=== PATIENT | female | born 1940 | race Caucasian/White ===

== ENCOUNTER 2025-07-26 23:46 | Inpatient (IN) | payer MEDICAID ==
[~2025-07-26] VITALS: Ht 144.8 cm; Wt 66.0 kg
[2025-07-26 23:58] VITALS: O2SAT 98
[2025-07-27 01:11] LABS: HEMATOCRIT. 34.9 % (36.0-48.0); HEMOGLOBIN. 11.2 g/dL (12.0-16.0); MEAN PLATELET VOLUME 8.2 fl (7.4-10.4); PLATELET 150 x1000/uL (130-400); RED BLOOD CELL COUNT 4.56 mill/uL (4.2-5.4); RED CELL DISTRIBUTION WIDTH 18.4 % (11.6-14.6)
[2025-07-27] MEDS: ONDANSETRON HCL 4MG/2ML INJ IV ONE (01:34)
[2025-07-27] MEDS: SODIUM CHLORIDE 0.9% 1,000 ML IV ONE (01:34)
[2025-07-27 01:38] LABS: CREATININE 1.2 mg/dL (0.6-1.0); TROPONIN I HIGH SENSITIVITY 26 ng/L (3.0-34)
[2025-07-27 01:39] LABS: UREA NITROGEN BLOOD 16 mg/dL (9-23)
[2025-07-27 01:40] LABS: ASPARTATE AMINOTRANSFERASE 494 IU/L (<34)
[2025-07-27 01:41] LABS: BILIRUBIN DIRECT 1.5 mg/dL (<=3.0); BILIRUBIN TOTAL 2.8 mg/dL (0.1-1.0); PROTEIN TOTAL 7.6 g/dL (6.0-8.3)
[2025-07-27] MEDS ORDERED: ONDANSETRON HCL 4MG/2ML INJ IV PRN (04:30)
[2025-07-27] MEDS ORDERED: ACETAMINOPHEN 325MG TABLET PO PRN (04:30)
[2025-07-27] MEDS ORDERED: HYDRALAZINE 20MG/ML VIAL IV PRN (04:30)
[2025-07-27] MEDS ORDERED: DIPHENHYDRAMINE 50MG/ML VIAL IV PRN (04:30)
[2025-07-27] MEDS: KCL 20MEQ/100ML PREMIX 100 ML IV SCH ×2 (04:46→09:08)
[2025-07-27] MEDS: MAGNESIUM 1 G PREMIX 100 ML IV SCH (04:47)
[2025-07-27] MEDS: SODIUM CHLORIDE 0.9% 1,000 ML IV SCH (04:47)
[2025-07-27] MEDS ORDERED: IOHEXOL-300 100 ML BOTTLE ONE (05:27)
[2025-07-27 05:59] LABS: CLARITY URINE CLEAR (CLEAR); COLOR URINE YELLOW (YELLOW); GLUCOSE URINE NEGATIVE (NEGATIVE); KETONES URINE NEGATIVE (NEGATIVE); LEUKOCYTE ESTERASE URINE NEGATIVE (NEGATIVE); NITRITE URINE NEGATIVE (NEGATIVE); OCCULT BLOOD URINE NEGATIVE (NEGATIVE); PH URINE 6.5 (4.5-8.0); PROTEIN URINE TRACE (NEGATIVE); SPECIFIC GRAVITY URINE 1.008 (1.005-1.030); UROBILINOGEN URINE 1.0 E.U./dL (0.2-1.0)
[2025-07-27 06:12] LABS: EOSINOPHILS % MANUAL 1.0 % (0.0-5.0); LYMPHOCYTES % MANUAL 5.0 % (20.0-60.0); MONOCYTES % MANUAL 1.0 % (2.0-8.0); NEUTROPHILS % MANUAL 93.0 % (45.0-75.0)
[2025-07-27 06:14] LABS: PLATELET ESTIMATE NORMAL
[2025-07-27 07:33] LABS: BACTERIA URINE TRACE; RBC URINE NONE SEEN /hpf (0-2); SQUAMOUS EPITHELIAL CELL URINE 1+ /lpf (RARE/1+); WBC URINE 0-2 /hpf (0-2)
[2025-07-27 08:00] VITALS: BP_SYST 123; BP_SYST 142; BP_DIAS 54; BP_DIAS 58; PULSE 68; PULSE 70; RESP 17; RESP 20; TEMP 36.14; TEMP 36.9; O2SAT 98
[2025-07-27] MEDS: PANTOPRAZOLE SODIUM 40 MG/VIAL IV SCH (09:07)
[2025-07-27 12:00] VITALS: BP 142/53; PULSE 46; RESP 20; TEMP 36.3; O2SAT 100
[2025-07-27 16:00] VITALS: BP 147/58; PULSE 63; RESP 18; TEMP 37.1; O2SAT 98
[2025-07-27] MEDS: ACETAMINOPHEN 325MG TABLET PO PRN (18:37)
[2025-07-27] MEDS ORDERED: ATEN-42 PO (19:03)
[2025-07-27] MEDS ORDERED: AMLO5TAB88 PO (19:03)
[2025-07-27] MEDS ORDERED: BENA-8 PO (19:03)
[2025-07-27 20:00] VITALS: BP 108/52; PULSE 90; RESP 18; TEMP 36.5; O2SAT 98
[2025-07-27] MEDS: PIPERACILLIN/TAZO 3.375G/50ML 50 ML IV SCH (22:00)
[2025-07-28] VITALS: BP 97/47; PULSE 92; RESP 18; TEMP 36.5; O2SAT 97
[2025-07-28 04:00] VITALS: BP 115/49; PULSE 67; RESP 18; TEMP 36.4; O2SAT 98
[2025-07-28 08:11] VITALS: BP 158/63; PULSE 88; RESP 20; TEMP 36.3; O2SAT 99
[2025-07-28 08:15] LABS: HEMATOCRIT. 30.6 % (36.0-48.0); HEMOGLOBIN. 9.7 g/dL (12.0-16.0); MEAN PLATELET VOLUME 8.8 fl (7.4-10.4); PLATELET 109 x1000/uL (130-400); RED BLOOD CELL COUNT 3.94 mill/uL (4.2-5.4); RED CELL DISTRIBUTION WIDTH 19.4 % (11.6-14.6)
[2025-07-28 08:26] LABS: CREATININE 1.5 mg/dL (0.6-1.0)
[2025-07-28 08:27] LABS: LDL CHOLESTEROL 45 mg/dL (5-100); TRIGLYCERIDE 179 mg/dL (0-150); UREA NITROGEN BLOOD 25 mg/dL (9-23)
[2025-07-28 08:28] LABS: ASPARTATE AMINOTRANSFERASE 76 IU/L (<34); BILIRUBIN DIRECT 2.3 mg/dL (<=3.0)
[2025-07-28 08:29] LABS: BILIRUBIN TOTAL 3.2 mg/dL (0.1-1.0); PHOSPHORUS 2.8 mg/dL (2.5-4.9); PROTEIN TOTAL 5.9 g/dL (6.0-8.3)
[2025-07-28 08:31] LABS: FOLIC ACID (FOLATE) SERUM 6.43 ng/mL (>5.38); VITAMIN B12 SERUM 532 pg/mL (211-911)
[2025-07-28 09:02] LABS: HEPATITIS A AB IGM NEGATIVE (Negative); HEPATITIS B CORE AB IGM NEGATIVE (Negative)
[2025-07-28 09:03] LABS: HEPATITIS C AB NON REACTIVE (Neg) (Negative)
[2025-07-28 11:48] VITALS: BP 144/60; PULSE 76; RESP 19; TEMP 36.7; O2SAT 95
[2025-07-28] MEDS: IRON SUCROSE COMPLEX 100 MG/5 ML ML IV SCH (13:31)
[2025-07-28] MEDS: CYANOCOBALAMIN 1000MCG/ML VIAL IM NR (13:31)
[2025-07-28 15:59] VITALS: BP 123/53; PULSE 78; RESP 18; TEMP 36.6; O2SAT 94
[2025-07-28 17:46] LABS: BAND% 8.0 % (1.0-6.0); LYMPHOCYTES % MANUAL 9.0 % (20.0-60.0); MONOCYTES % MANUAL 1.0 % (2.0-8.0); NEUTROPHILS % MANUAL 82.0 % (45.0-75.0); PLATELET ESTIMATE DECREASED
[2025-07-28 20:15] VITALS: BP 135/51; PULSE 77; RESP 20; TEMP 36.8; O2SAT 96
[2025-07-28] MEDS: SODIUM CHLORIDE 0.9% 1,000 ML IV SCH (20:21)
[2025-07-29 00:32] VITALS: BP 148/67; PULSE 74; RESP 20; TEMP 36.6; O2SAT 95
[2025-07-29 04:00] VITALS: BP 158/62; PULSE 69; RESP 20; TEMP 36.3; O2SAT 97
[2025-07-29 07:10] LABS: BASOPHILS % 0.3 % (0.0-2.0); EOSINOPHILS % 3.1 % (0.0-5.0); HEMATOCRIT. 30.0 % (36.0-48.0); HEMOGLOBIN. 9.5 g/dL (12.0-16.0); LYMPHOCYTES % 11.4 % (20.0-50.0); MEAN PLATELET VOLUME 9.1 fl (7.4-10.4); MONOCYTES % 6.6 % (2.0-8.0); NEUTROPHILS % 78.6 % (40.0-76.0); PLATELET 119 x1000/uL (130-400); RED BLOOD CELL COUNT 3.86 mill/uL (4.2-5.4); RED CELL DISTRIBUTION WIDTH 19.9 % (11.6-14.6)
[2025-07-29 07:31] LABS: CREATININE 1.4 mg/dL (0.6-1.0); UREA NITROGEN BLOOD 19 mg/dL (9-23)
[2025-07-29 07:33] LABS: ASPARTATE AMINOTRANSFERASE 55 IU/L (<34); BILIRUBIN DIRECT 1.8 mg/dL (<=3.0)
[2025-07-29 07:34] LABS: BILIRUBIN TOTAL 2.5 mg/dL (0.1-1.0); PHOSPHORUS 1.7 mg/dL (2.5-4.9); PROTEIN TOTAL 5.9 g/dL (6.0-8.3)
[2025-07-29 07:47] VITALS: BP 147/63; PULSE 67; RESP 20; TEMP 36.8; O2SAT 93
[2025-07-29 11:48] VITALS: BP 146/68; PULSE 75; RESP 20; TEMP 36.8; O2SAT 95
[2025-07-29] MEDS ORDERED: FERR-71 MT (14:12)
[2025-07-29 15:09] VITALS: BP 139/56; PULSE 72; RESP 20; TEMP 37.1; O2SAT 94
[2025-07-29] MEDS: CLONIDINE 0.1MG TABLET PO PRN (15:39)
[2025-07-29 16:45] VITALS: BP 146/66; PULSE 73; RESP 19; TEMP 97.9
== END 2025-07-29 17:40 | disposition home or self-care (01) ==
LOC: ER 23:46 → 7WST 07-27 03:42 → EDBEDREQTM 07-27 03:58 → EDBEDREQ 07-27 03:58 → ENRESERV 07-27 05:12
PROVIDERS: ADMIT Internal Medicine; ATTEND Internal Medicine
DX: K80.62 Calculus of gallbladder and bile duct with acute cholecystitis without obstruction (principal); D50.9 Iron deficiency anemia, unspecified; E87.6 Hypokalemia; K76.0 Fatty (change of) liver, not elsewhere classified; I10 Essential (primary) hypertension
CPT/HCPCS: 36415; 71045; 74177; 74181; 76705; 80048; 80061; 80076; 81003; 82607; 82728; 82746; 82977; 83036; 83540; 83550; 83735; 84100; 84484; 85025; 86705; 86709; 87340; 96361; 96374; 99291; J2405; J2470; J2543; J3420; J3475; J3480; J7030; Q9967